=== PATIENT | male | born 1960 | race Caucasian/White ===

== ENCOUNTER → 2016-11-22 | Outpatient (CLI) | payer BC ==
[~2016-11-22] MED LIST: ASPI-427 PO; CALC625T32 PO; COLE625T PO; CYCL15CA18 PO; LISI1TAB11 PO; MULT-806 PO; OLAN5TAB25 PO; OMEG1CAP17 PO; ONDA4TAB4 PO; OXYC1TAB8 PO; PIRO20CA PO; PRAV40TA3 PO; PRAV40TA44 PO; VITA1CAP65 PO; VITA200C63 PO
--- NOTE | 2016-11-22 11:17 | DI ---
INDICATION: ITS.REASON: Z01.818 ENCOUNTER FOR OTHER PREPROCEDURAL EXAMINATION PROCEDURE: CHEST 2-VIEWS UPRIGHT (PA \T\ LAT) Encounter: Initial COMPARISON: January 15, 2013 FINDINGS: The lungs are clear without evidence of focal abnormal airspace opacity. There is no pleural effusion or pneumothorax. The heart size, mediastinal contours and pulmonary vascularity are within normal limits. Suture anchors in the left humeral head. IMPRESSION: No acute cardiopulmonary disease. .
== END ==
LOC: LAB 10:02
PROVIDERS: ATTEND Family Medicine
DX: Z01.818 Encounter for other preprocedural examination (principal)
CPT/HCPCS: 93005

== ENCOUNTER 2016-12-04 11:42 | Day surgery (SDC) | payer OTHER, BC ==
[2016-12-04] VITALS (20 sets, daily range): BP systolic 120–146; BP diastolic 74–91; PULSE 90–98; RESP 10–25; TEMP 96.6–97.9; O2SAT 90–99; Ht 179.1 cm; Wt 99.8 kg
[~2016-12-04] VITALS: Ht 179.1 cm; Wt 99.8 kg
[~2016-12-04 11:42] MED LIST changes: +CEFAZOLIN 1 GRAM INJECTION IV ONE; +LIDOCAINE 1% (10mg/ml) 2ml SDV INJ ONE; +LR 1,000 ML IV SCH; -ONDA4TAB4 PO; -OXYC1TAB8 PO; -PRAV40TA44 PO
--- OUTSIDE RECORDS SUMMARY | 2016-12-04 11:46 | XMS REPORT ---
Author Author Latosha Gabriel [facility], [facility] Address [address] [place] [address] Care Team Providers Care Internal Medicine Specialist Name Role Phone Latosha Gabriel Unavailable [phone] PROBLEMS Type Condition ICD9-CM Code PWS53-BT Code Onset Dates Condition Status SNOMED Code Problem Acute pain of right shoulder M25.511 Active [id number] ALLERGIES Unknown Allergies SOCIAL HISTORY No smoking Hx information available PLAN OF CARE VITAL SIGNS MEDICATIONS Unknown Medications RESULTS No Results PROCEDURES No Known procedures IMMUNIZATIONS No Known Immunizations
--- OUTSIDE RECORDS SUMMARY | 2016-12-04 11:46 | XMS REPORT | Continuity of Care Document ---
Author Author [facility] Organization [facility] Address Unknown Phone Unavailable Support Name Relationship Address Phone LETICIA SETHI Next Of Kin [address] [place] [address] Unavailable Insurance Providers Payer Name Policy Number Subscriber Name Relationship [facility] [id number] Sheri Pierce 18 Self Workers Compensation [id number] Sheri Pierce 18 Self Problems No Known Problems or Medical conditions. Family History History Response Recorded Date/Time HX Cerebrovascular Accident N 01/27/13 7:01am Hx Seizures N 01/27/13 7:01am Hx Angina Y 2012-CHECKED BY [facility]-HAS OCC 01/27/13 7:01am Hx Congestive Heart Failure N 01/27/13 7:01am Hx Heart Attack N 01/27/13 7:01am Hx Hypertension N 01/27/13 7:01am Hx Chronic Obstructive Pulmonary Disease (COPD) N 01/27/13 7:01am Hx Diabetes N 01/27/13 7:01am Hx Clotting Problems N 01/27/13 7:01am Hx Cancer N 01/27/13 7:01am Hx MRSA N 01/27/13 7:01am HX of Throat Surgery Y TONSILS CHILD 01/27/13 7:01am Social History History Response Recorded Date/Time Smoking Status Current some day smoker 01/27/13 7:01am Chewing Tobacco Status Y CHEWS POUCHES 01/27/13 7:01am Hx Substance Use N PAST METH ABUSER, CLEAN SINCE PER HISTORY AND PHYSICAL 01/27/13 7:01am Hx Alcohol Use Y IN PAST 01/27/13 7:01am Has the pt used tobacco in the last 12 months Y 01/27/13 7:01am Allergies, Adverse Reactions, Alerts Allergen Type Severity Reaction Last Updated tetracycline HCl Allergy Unknown 10/20/10 CAT GUT Adverse Reaction Unknown 09/28/09 Medications Medication Dose Units Route Sig Qty Days Vitamin B Complex (Super B Complex) 1 Cap PO DAILY Olanzapine (Zyprexa) 2.5 Mg PO BID [place]-3 Acid Ethyl Esters (Lovaza) 1 G PO BID Polyethylene Glycol 3350 (Miralax) 17 Gm PO PRN Pravastatin Sodium (Pravachol) 40 Mg PO DAILY Piroxicam (Feldene) 20 Mg PO DAILY Vitamin E 200 Unit PO DAILY [Amrix] 1 Tab PO DAILY Aspirin (Aspirin Enteric Coated) 325 Mg PO DAILY Multivitamins (Multivitamin) 1 Tab PO DAILY Vitamin E 400 Unit PO DAILY Piroxicam 20 Mg PO DAILY Vitamin B Complex (Super B Complex) 1 Cap PO DAILY Olanzapine (Zyprexa) 2.5 Mg PO DAILY [Simcor 500-20] PO DAILY Immunizations Name Given Type Hx Influenza Vaccination Y FALL 2011 H Hx Pneumococcal Vaccination N UNKNOWN H Response Recorded Date/Time Status not known Unknown Results Test Date Result Interp. Ref. Range Activated Partial Thromboplast Time March 17, 2012 10:45am 33.3 SEC N 24- 36 Alanine Aminotransferase (ALT/SGPT) January 27, 2013 7:35am 40 U/L N 21-72 Albumin January 27, 2013 7:35am 4.5 G/DL N 3.5-5.0 Albumin/Globulin Ratio January 27, 2013 7:35am 1.6 RATIO N 1.1-2.2 Alkaline Phosphatase January 27, 2013 7:35am 82 U/L N 38-126 Anion Gap January 27, 2013 7:35am 15 MEQ/L N 5-15 Aspartate Amino Transf (AST/SGOT) January 27, 2013 7:35am 33 U/L N 17-59 BUN/Creatinine Ratio January 27, 2013 7:35am 29 RATIO H 6-26 Basophils # (Auto) January 27, 2013 7:35am 0.1 T/MM3 N 0-0.2 Basophils (%) (Auto) January 27, 2013 7:35am 1.1 % N 0-2 Blood Urea Nitrogen January 27, 2013 7:35am 23.0 MG/DL H 9-20 Calcium Level January 27, 2013 7:35am 9.7 MG/DL N 8.4-10.2 Calculated Osmolality January 27, 2013 7:35am 281 MOSM/KG H 261-280 Carbon Dioxide Level January 27, 2013 7:35am 26 MEQ/L N 22-30 Chloride Level January 27, 2013 7:35am 103 MEQ/L N 98-107 Conjugated Bilirubin March 17, 2012 10:45am 0.00 MG/DL N 0.00-0.30 Creatinine January 27, 2013 7:35am 0.8 MG/DL N 0.8-1.5 Eosinophils # (Auto) January 27, 2013 7:35am 0.4 T/MM3 N 0-0.5 Eosinophils (%) (Auto) January 27, 2013 7:35am 6.8 % H 0-4 Globulin January 27, 2013 7:35am 2.8 G/DL N 2.4-3.6 Glucose Level January 27, 2013 7:35am 99 MG/DL N 75-110 Hematocrit January 27, 2013 7:35am 42.5 % N 41-53 Hemoglobin January 27, 2013 7:35am 14.4 GM/DL N 13.5-17.5 Lymphocytes # (Auto) January 27, 2013 7:35am 2.0 T/MM3 N 1-4.8 Lymphocytes (%) (Auto) January 27, 2013 7:35am 32.2 % N 23-45 Mean Corpuscular Hemoglobin January 27, 2013 7:35am 29.9 UUG N 26-34 Mean Corpuscular Hemoglobin Concent January 27, 2013 7:35am 33.9 GM/DL N 31- 37 Mean Corpuscular Volume January 27, 2013 7:35am 88.2 UM3 N 80-100 Mean Platelet Volume January 27, 2013 7:35am 9.2 UM3 L 9.4-12.4 Monocytes # (Auto) January 27, 2013 7:35am 0.8 T/MM3 N 0-0.8 Monocytes (%) (Auto) January 27, 2013 7:35am 12.4 % H 0-9.0 Neutrophils # (Auto) January 27, 2013 7:35am 3.0 T/MM3 N 1.8-7.7 Neutrophils (%) (Auto) January 27, 2013 7:35am 46.9 % N 33-66 Platelet Count January 27, 2013 7:35am 304 T/MM3 N 130-400 Potassium Level January 27, 2013 7:35am 4.5 MEQ/L N 3.6-5 Prothromb Time International Ratio January 27, 2013 7:35am 1.10 N 0.79-1.23 RDW Standard Deviation January 27, 2013 7:35am 40.9 FL N 36.9-50.2 Red Blood Count January 27, 2013 7:35am 4.82 M/MM3 N 4.50-5.90 Sodium Level January 27, 2013 7:35am 144 MEQ/L N 134-144 Total Bilirubin January 27, 2013 7:35am 0.50 MG/DL N 0.20-1.30 Total Protein January 27, 2013 7:35am 7.3 G/DL N 6.3-8.2 Troponin I March 17, 2012 10:45am < 0.012 ng/ml 0-0.12 Unconjugated Bilirubin March 17, 2012 10:45am < -0.30 MG/DL L 0.00-1.10 White Blood Count January 27, 2013 7:35am 6.3 T/MM3 N 4.5-11.0 Glomerular Filtration Rate Calc January 27, 2013 7:35am 102 - Immature Granulocyte # (Auto) January 27, 2013 7:35am 0.04 T/MM3 H 0.00-0.03 Immature Granulocyte % (Auto) January 27, 2013 7:35am 0.6 % H 0.0-0.5 ZB-Ydb-W-Type Natriuretic Peptide March 17, 2012 10:45am 14 PG/ML N 0-175 Procedures Procedure Code Date ARTHROSCOP ROTATOR CUFF REPR [id number] 01/27/13 SHOULDER ARTHROSCOPY/SURGERY 70390 01/27/13 SHOULDER ARTHROSCOPY/SURGERY 11810 01/27/13 Encounters Encounter Location Date/Time Departed Emergency Room [facility] 03/17/12 10:58am
--- OUTSIDE RECORDS SUMMARY | 2016-12-04 11:46 | XMS REPORT | Continuity of Care Document ---
Author Author [facility] Address Unknown Phone Unavailable Allergies Medications Medication Packaging Start Date Stop Date Route Dosage Sig OLANZapine 5 MG Oral Tablet UD 09/06/2014 10/02/2015 ORAL 5MG 1 po QAM OLANZapine 5 MG Oral Tablet UD 09/01/2015 09/26/2016 ORAL 5MG 1 po QAM OLANZapine 5 MG Oral Tablet UD 05/29/2016 06/24/2017 ORAL 5MG 1 po QAM Problems Date Dx Coded Attending Type Code Diagnosis Diagnosed By 09/01/2015 F E78.2 Mixed hyperlipidemia Sean, Susana Ana 09/01/2015 F F20.0 Paranoid schizophrenia Barbra Rivas 09/01/2015 F 477.9 ALLERGIC RHINITIS, CAUSE UNSPECIFIED Barbra Rivas 09/01/2015 F V71.09 NO DIAGNOSIS Barbra Rivas 09/01/2015 F E78.2 Mixed hyperlipidemia Sean, Susana Ana 09/01/2015 F F20.9 Schizophrenia, unspecified Estrada, Susana Ana 09/01/2015 F J30.9 Allergic rhinitis, unspecified Estrada, Susana Ana 09/01/2015 F M05.80 Other rheumatoid arthritis with rheumatoid factor of unspecified site Estrada, Susana Ana 09/01/2015 F F20.9 Schizophrenia, unspecified Estrada, Susana Ana 05/29/2016 F F20.9 Schizophrenia, unspecified Nogueira, Paola 05/29/2016 F E78.2 Mixed hyperlipidemia Nogueira, Paola 05/29/2016 F E78.2 Mixed hyperlipidemia Estrada, Susana Ana 07/01/2016 F F20.9 Schizophrenia, unspecified Estrada, Susana Ana 11/22/2016 F E78.2 Mixed hyperlipidemia Estrada, Susana Ana 11/22/2016 F F20.9 Schizophrenia, unspecified Estrada, Susana Ana 11/22/2016 F I10 Essential (primary) hypertension Estrada, Susana Ana 11/22/2016 F J30.9 Allergic rhinitis, unspecified Chidi Estradaia Ana 11/22/2016 F M05.80 Other rheumatoid arthritis with rheumatoid factor of unspecified site Susana Estrada Ana 11/22/2016 F E78.2 Mixed hyperlipidemia Rylie Donovan 11/22/2016 F F20.9 Schizophrenia, unspecified Rylie Donovan A 11/22/2016 F E78.2 Mixed hyperlipidemia Chidi Estradaia Ana 11/22/2016 F F20.9 Schizophrenia, unspecified Sean, Susana Ana Procedures Code Description [place] [address] OFFICE/OUTPATIENT VISIT, Chidi Candelariaia Ana 09/01/2015 [id number] OFFICE/OUTPATIENT VISIT, MAN Estrada Susana Ana 09/01/2015 00120 OFFICE/OUTPATIENT VISIT, Wendy Candelariaricia Ana 05/29/2016 [id number] OFFICE/OUTPATIENT VISIT, Chidi Candelariaia Ana 05/29/2016 41121 OFFICE/OUTPATIENT VISIT, Chidi Candelariaia Ana 11/22/2016 [id number] OFFICE/OUTPATIENT VISIT, Wendy Candelariaricia Ana 11/22/2016 Results Encounters ACCT No. Visit Date/Time Discharge Status Pt. Type Provider Facility Loc./Unit Complaint [id number] 05/29/2016 15:18:00 05/29/2016 15:48:00 DIS Outpatient
[2016-12-04] MEDS ORDERED: ROCURONIUM 50mg/5ml INJECTION IV ONE ×2 (11:54→17:00)
[2016-12-04] MEDS ORDERED: ROPIVACAINE 0.5% (5mg/ml) 30ml INJ ONE (11:54)
[2016-12-04] MEDS ORDERED: PROPOFOL 200mg 0 ML IV ONE (11:54)
--- NOTE | 2016-12-04 12:41 | ANESPREOP ---
Anesthesia Record Date and Time DATE: 12/04/16 TIME: 12:39 Pre-Op Diagnosis right Rotator Cuff tear Proposed Surgical Procedure RIGHT SHOULDER ARTHROSCOPY, RCR SUPERIOR LABRAL TEAR NPO since: 2199 Allergies: Coded Allergies: tetracycline HCl (Verified Allergy, Unknown, 12/03/16) Uncoded Allergies: CAT GUT (Adverse Reaction, Unknown, 09/28/09) Ht/Wt/BMI Height: 5 ' 10.50 " Weight: 99.800 kg BMI: 31.1 kg/m2 Vital Signs Date Time Temp Pulse Resp B/P Pulse Ox O2 Delivery O2 Flow Rate FiO2 12/04/16 12:21 97.9 93 16 127/91 94 Room Air Medications Inpatient Medications Current Medications Medications (Trade) Dose Ordered Sig/Jeni Start Time Stop Time Status Last Admin Dose Admin Lactated Ringer's (Lactated Ringers) 1,000 ml @ 50 mls/hr Q20H 12/04/16 07:00 12/04/16 12:30 50 MLS/HR Aspirin EC (Aspirin Enteric Coated) 325 Mg Tablet.dr, 325 MG PO DAILY, (Reported ) Last Taken: on 11/25/16 Calcium Polycarbophil (Fiber Tabs) 625 Mg Tablet, 1 TAB PO DAILY, (Reported) Last Taken: on 12/03/16 Cyclobenzaprine HCl (Amrix) 15 Mg Cap.er.24h, 1 CAP PO DAILY, (Reported) Last Taken: on 12/03/16 0300 Lisinopril/Hydrochlorothiazide (Lisinopril-Hctz 20-12.5 mg Tab) 1 Each Tablet, 1 TAB PO DAILY, (Reported) Last Taken: on 12/03/16 0300 Multivitamins (Multivitamin) 1 Tab Tablet, 1 TAB PO DAILY, (Reported) Last Taken: on 11/27/16 Olanzapine (Olanzapine) 5 Mg Tablet, 1 TAB PO DAILY, (Reported) Last Taken: on 11/27/16 0300 Piroxicam (Feldene) 20 Mg Capsule, 20 MG PO DAILY, (Reported) Last Taken: on 11/27/16 Vitamin B Complex (Super B Complex) 1 Cap Capsule, 1 CAP PO DAILY, (Reported) Last Taken: on 11/27/16 Vitamin E (Vitamin E) 200 Unit Capsule, 200 UNIT PO DAILY, (Reported) Last Taken: on 11/27/16 Currently on Beta Kyle: No Medical/Surgical History Anesthesia PMH: Reports: *Angina (HX ANGINA IN 2012, WAS "CHECKED AND CLEARED" , NONE SINCE 2011), *Hypertension, Arthritis (AO), Asthma (CHILDHOOD, NO ISSUES AN ADULT), Hepatitis (HX: HEP A&B, PER CURRENT LAB TEST-NO HISTORY), Hyperlipidemia, Reflux (HX), Sleep Apnea, Denies: *Diabetes, *Dyspnea, *MO, Anesthesia Reactions (NO AIRWAY ISSUES KNOWN), Blood Transfusion Reac, CHF, COPD , CVA/Stroke/TIA, Cancer, Clotting Problems, Deep Vein Thrombosis, Glaucoma, Hiatal Hernia, Malignant Hyperthermia, Pneumonia, Renal Disease, Seizures, Thyroid Disease, Tuberculosis Smoking Status: Former smoker Use Chewing Tobacco?: No Second Hand Exposure: No Substance Use Type: former substance user, 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) Alcohol Intake: none Past Surgical History Orthopedic Surgeries: Yes - L RCR Abdominal Surgeries: Genitourinary Surgeries: Cardiac Surgeries: Endocrine Surgeries: Reproductive Surgeries: Neurological Surgeries: Ear Surgeries: Nose Surgeries: Throat Surgeries: Yes - TONSILS Other Surgeries: Yes - ORAL SURGERIES Anesthesia Adverse Reactions: FOUND none Family Hx of Anesthesia Advers: none Hx of Motion Sickness: No Pertinent Findings EKG Rhythm: Sinus Rhythm Physical Exam Respiratory: Lungs clear Cardiovascular: FOUND Regular rate, rhythm, FOUND No murmur Airway Assessment Mallampati Score: III TMD: 3 Fingerbreadths Neck Extension: Good Teeth: Chipped Teeth/Crowns Overall Assessment: May Be Diff Intubation ASA: 3 Plan Anesthesia Plan: GETA Peripheral Nerve Block: Interscalene Block - RT Discussion Discussed risks/options/alternatives of anesthesia and questions answered. Patient consents. Nursing pain assessment noted. Attestation Statement Prior to the delivery of any anesthetic medication, I examined the patient, developed the plan, obtained the patient's consent and discussed the risk and benefits of the procedure with the patient/guardian. NANCI ROMERO CRNA December 04, 2016 12:41
--- NOTE | 2016-12-04 12:42 | NUR ---
2 MG VERSED ADMINISTERED BY NANCI ROMERO CHUTE BOSS AT 1242
[2016-12-04] MEDS ORDERED: MIDAZOLAM 2mg/2ml INJECTION IV ONE (12:45)
--- NOTE | 2016-12-04 13:04 | ANESPD ---
Peripheral Nerve Blockade Physician: Andrea Ley MD Date: 12/04/16 Surgical Procedure: right rotator cuff repair Discussion Discussed risks/options/alternatives of anesthesia and questions answered. Patient consents. Nursing pain assessment noted. Block Start: 12:48 Block Stop: 12:58 Block Employed: Intrascalene Indication: post-operative pain Approach: right side confirmed Position: supine Patient: Consent, risks/benefits discussed, Informed, post block act. discussed Monitors: EKG, SpO2, NIBP IV Sedation: Yes Sedation: sedate w/meaningful contact Midazolam (mg): 2 Initial Vital Signs First Documented Vital Signs Date Time Temp Pulse Resp B/P Pulse Ox O2 Delivery O2 Flow Rate FiO2 12/04/16 12:21 97.9 93 16 127/91 94 Room Air Post Vital Signs Vital Signs Date Time Temp Pulse Resp B/P Pulse Ox O2 Delivery O2 Flow Rate FiO2 12/04/16 12:21 97.9 93 16 127/91 94 Room Air Initial Pain Score: 0 Post Block Score: 0 Prep: chlorhexadine/ETOH Ultrasound Used?: Yes Injectate Ropivacaine (%): 0.5 Ropivacaine (mL): 30 Injection Injection made incrementally with constant monitoring and aspiration every [5] ml. NANCI ROMERO CRNA December 04, 2016 13:04
[2016-12-04] MEDS ORDERED: ONDANSETRON 4mg/2ml INJECTION ONE (14:30)
[2016-12-04] MEDS ORDERED: ONDANSETRON 4mg/2ml INJECTION IV PRN (15:00)
[2016-12-04] MEDS ORDERED: MEPERIDINE 100 mg/ml VIAL IV PRN (15:00)
[2016-12-04] MEDS ORDERED: HYDROMORPHONE 2mg/ml INJECTION IV PRN (15:00)
[2016-12-04] MEDS ORDERED: ONDA4TAB4 PO (15:32)
[2016-12-04] MEDS ORDERED: OXYC1TAB8 PO (15:32)
--- NOTE | 2016-12-04 15:34 | PDPROCED ---
Immediate Operative Note DATE: 12/04/16 TIME: 15:33 Preop Diagnosis: RIGHT RCT,LONGHEAD BICEPS TEAR,LABRAL TEAR, IMPINGEMENT Postop Diagnosis: Right shoulder RCT, chronic long head biceps tear, degenerative labral tear, impingement Surgical Procedures: R Arthroscopic RCR (SAD, labral debridement) Surgeon: Jil Federal Law Clerk: DAMIAN Tyler Anesthesia: General (plus regional block) Complications: none Estimated Blood Loss see anesthesia FORTINO EVERETT December 04, 2016 15:34
--- NOTE | 2016-12-04 16:43 | ANESPO ---
Post-Op Note Date 12/04/16 Time: 16:42 Status Pt Participated in Evaluation: Pt participated by phone Vital Signs Date Time Temp Pulse Resp B/P Pulse Ox O2 Delivery O2 Flow Rate FiO2 12/04/16 16:27 91 18 137/74 94 Room Air 12/04/16 16:12 96.7 12/04/16 15:55 2.00 Respiratory Function: Airway patent Cardiovascular Function: Regular pulse Mental Status: Alert/oriented Pain Level Intensity: 0 (block working well) Hydration: Taking po fluids Complications during Recovery None apparent Follow-Up Instructions Instructions Per Surgeon GEORGE RODRIGUEZ CRNA December 04, 2016 16:43
[2016-12-04] MEDS ORDERED: SUGAMMADEX 200 MG/2 ML INJECTION IV ONE (17:00)
[2016-12-04] MEDS ORDERED: NEOSTIGMINE 10mg/10ml INJECTION IV ONE (17:00)
[2016-12-04] MEDS ORDERED: ONDANSETRON 4mg/2ml INJECTION IV ONE (17:00)
[2016-12-04] MEDS ORDERED: KETOROLAC 30mg/ml INJECTION IV ONE (17:00)
--- NOTE | 2016-12-05 09:23 | OPNOTEF ---
DATE OF OPERATION 12/04/2016 PREOPERATIVE DIAGNOSIS 1. Right shoulder rotator cuff tear. 2. Right shoulder long head biceps rupture. 3. Right shoulder rotator cuff impingement. POSTOPERATIVE DIAGNOSIS 1. Right shoulder full-thickness supraspinatus rotator cuff tear. 2. Right shoulder partial-thickness articular sided tear, subscapularis 3. Right shoulder long head biceps tendon rupture with degenerative superior labrum tearing. 4. Right shoulder subacromial impingement with bursitis. PROCEDURE 1. Right shoulder arthroscopic rotator cuff repair. 2. Right shoulder arthroscopic limited debridement superior labrum and subscapularis. 3. Right shoulder arthroscopic subacromial decompression. SURGEON Andrea Ley MD FOAM MACHINE OPERATOR Mayo Walton PA-C ANESTHESIA General with regional block FLUIDS Please refer to Anesthesia chart. EBL Minimal. TOURNIQUET None used. COMPLICATIONS None. CONDITION Stable to recovery room. DESCRIPTION OF PROCEDURE The patient was identified in the preoperative holding area. The operative extremity was identified and appropriately marked. Risks, benefits, alternatives and potential complications were discussed and informed consent was obtained. The patient was taken to the operating theatre, placed supine on the operating table. Appropriate cardiorespiratory monitors were applied. General anesthesia was administered. The patient was positioned in a seated beach chair position with all bony prominences well padded. The head and neck were secured in a safe position. Right upper extremity was sterilely prepped and draped in the usual fashion. Surgical time-out was performed, confirmed with myself, the drum sander setter and circulating nurse. Preoperative antibiotics were given. Examination under anesthesia revealed full passive range of motion of the right shoulder. No evidence of instability. A standard posterior arthroscopic portal was established. The arthroscope was inserted and the glenohumeral joint was insufflated with saline. Needle localization was utilized to establish an anterior portal in the rotator interval. Diagnostic examination ensued. Glenohumeral articular cartilage was fairly well maintained. Subscapularis showed some fraying of the superior border with some longitudinal tearing at the midportion of the tendon. Fraying laterally on the articular side was debrided with a suction shaver. The bulk of the tendon however was intact. No glenohumeral ligament. Anterior, inferior and posterior stephen were found to be intact. There was degenerative fraying of the superior labrum which was debrided with a shaver. This appeared to be a degenerative type 2 lesion. However the long head biceps tendon was absent and was visibly ruptured. The labrum was further debrided with a suction shaver as was the biceps stump. Inspection of the posterior margin of the rotator cuff was intact. The supraspinatus showed full-thickness rotator cuff tear. The arthroscope was withdrawn and placed into the subacromial space. A lateral portal was established. A thorough bursectomy was performed to include the anterior, lateral and posterior gutters. The CA ligament was markedly frayed. This was released revealing a moderate size anterolateral subacromial spur. A 5-5 bur was inserted and acromioplasty was performed over to the level of the AC joint, converting this to a type 1 flat acromion. The capsule of the AC joint was released as well revealing underlying AC joint spurs. These were debrided with the bur as well though a formal AC joint resection was not performed. Inspection of the bursal aspect of the rotator cuff showed a crescentic supraspinatus tear. It was approximately 2 cm from anterior to posterior. The tendon was freely mobile. The edge of the tendon was debrided with a suction shaver. The footprint was debrided to a bleeding cortical surface. Anterior and lateral cannulas were placed. An accessory portal was utilized to place two 5.0 mm TwinFix anchors on the medial aspect of the footprint. Sutures were passed in a horizontal mattress configuration beginning anteriorly and culminating posteriorly. Sutures were then tied arthroscopically, fixing this the medial aspect of this rotator cuff tendon tear in this transosseous equivalent type repair. A single suture limb from each knot were then pulled out the lateral cannula. Soft tissue was cleared from the lateral margin of the greater tuberosity for insertion of two MULTIFIX S anchors. The first anchor was placed at the anterior margin of the tear on the lateral aspect of the greater tuberosity. The sutures were tensioned appropriately, providing compression of the lateral margin of the tendon as the suture anchors were inserted and deployed. This was then repeated for a second suture anchor along the posterior margin of the lateral aspect of the greater tuberosity. Suture tails were then cut. Probing of the repair noted a stable and solid repair. Visualizing arthroscopically while taking the shoulder through range of motion showed no gapping or tearing. Overall tendon tissue quality was felt to be good. The shoulder was then copiously lavaged, irrigated and drained. All arthroscopic instruments were removed. Portals were closed with nylon sutures. Sterile dressings were applied followed by a Polar Pack with all skin edges covered with surgical towels. An abduction sling was applied. The patient was awakened from anesthesia and taken to the recovery room in stable and satisfactory condition. JUAN
== END 2016-12-04 16:42 | disposition home or self-care (01) ==
LOC: NSC 11:42
PROVIDERS: ATTEND Orthopaedic Surgery
DX: M75.121 Complete rotator cuff tear or rupture of right shoulder, not specified as traumatic (principal); M75.41 Impingement syndrome of right shoulder; S46.111A Strain of muscle, fascia and tendon of long head of biceps, right arm, initial encounter; I10 Essential (primary) hypertension; E78.00 Pure hypercholesterolemia, unspecified; K21.9 Gastro-esophageal reflux disease without esophagitis; F31.9 Bipolar disorder, unspecified; Z79.899 Other long term (current) drug therapy; Z79.82 Long term (current) use of aspirin; Z88.1 Allergy status to other antibiotic agents; Z87.891 Personal history of nicotine dependence; Z86.19 Personal history of other infectious and parasitic diseases; X58.XXXA Exposure to other specified factors, initial encounter
CPT/HCPCS: 29826; 29827; C1713; J0690; J2405; J2795; J7120

== ENCOUNTER 2016-12-10 23:57 | Emergency (ER) | payer OTHER, BC ==
[~2016-12-10] VITALS: Ht 177.8 cm; Wt 82.8 kg
[2016-12-10 23:57] VITALS: Ht 177.8 cm; Wt 82.8 kg
[~2016-12-10 23:57] MED LIST changes: -CEFAZOLIN 1 GRAM INJECTION IV ONE; -COLE625T PO; -LIDOCAINE 1% (10mg/ml) 2ml SDV INJ ONE; -LR 1,000 ML IV SCH; -OMEG1CAP17 PO; +ONDA4TAB4 PO; +OXYC1TAB8 PO; -PRAV40TA3 PO
--- OUTSIDE RECORDS SUMMARY | 2016-12-11 00:02 | XMS REPORT | Continuity of Care Document ---
Author Author [facility] Organization [facility] Address Unknown Phone Unavailable Support Name Relationship Address Phone DARI SCHMITT II, MD Caregiver [address] [place] [address] Unavailable KELBY ESTRADA MD Caregiver [address] [place] [address] Unavailable LETICIA SETHI Next Of Kin [address] [place], [place] [id number] Insurance Providers Guarantor Ian Del Angel Address [address] [place] [address] Email DENIED 16 Payer [facility] Policy Number [id number] Subscriber's Name Del Angel,Ian L Relationship 18 Self Group Number [id number] Effective Date 08 Payer Workers Compensation Policy Number [id number] Subscriber's Name Del AngelIan weaver Jim Relationship 18 Self Advance Directives Directive Response Recorded Date/Time Ordered Resuscitation Status Full Code 12/03/16 2:08pm Resuscitation Documents on File No 12/04/16 12:13pm DPOA for Healthcare Only No 12/04/16 12:13pm Living Will No 12/04/16 12:13pm Problems No problem information available. Medications Current Home Medications Medication Dose Units Route Directions Days Qty Instructions Start Date Aspirin (Aspirin Enteric Coated) 325 Mg Tablet. 325 Mg Oral Daily 09/28/09 Calcium Polycarbophil (Fiber Tabs) 625 Mg Tablet 1 Tab Oral Daily 03/07/16 Cyclobenzaprine Hcl (Amrix) 15 Mg Cap.er.24h 1 Cap Oral Daily 06/12 Lisinopril/Hydrochlorothiazide (Lisinopril-Hctz 20-12.5 Mg Tab) 1 Each Tablet 1 Tab Oral Daily 30 12/03/16 Multivitamins (Multivitamin) 1 Tab Tablet 1 Tab Oral Daily Olanzapine 5 Mg Tablet 1 Tab Oral Daily 03/07/16 Ondansetron Hcl (Zofran) 4 Mg Tablet 4 Mg Oral Every 6 Hours as needed for Nausea 10 Tablet 12/04/16 Oxycodone Hcl/Acetaminophen (Percocet 5-325 Mg Tablet) 5-325 Tablet 5-10 Mg Oral Every 4 Hours 60 Tablet 12/04/16 Piroxicam (Feldene) 20 Mg Capsule 20 Mg Oral Daily 01/26/13 Vitamin B Complex (Super B Complex) 1 Cap Capsule 1 Cap Oral Daily 01/27/13 Vitamin E 200 Unit Capsule 200 Unit Oral Daily 01/26/13 Past Home Medications Medication Directions Ordered Status Amix , 15 Mg Oral Daily 09/28/09 Discontinued Olanzapine (Zyprexa) 2.5 Mg Tablet, 2.5 Mg Oral Daily 09/28/09 Discontinued Piroxicam 20 Mg Capsule, 20 Mg Oral Daily 09/28/09 Discontinued Polyethylene Glycol 3350 (Miralax) 17 Gm Powd.pack, 17 Gm Oral As Needed 09/09 Discontinued Simcor 500-20 , Oral Daily 09/28/09 Discontinued Vitamin B Complex (Super B Complex) 1 Cap Capsule, 1 Cap Oral Daily 09/28/09 Discontinued Vitamin E 400 Unit Capsule, 400 Unit Oral Daily 09/28/09 Discontinued Social History Social History Problem Response Recorded Date/Time Onset Date Status Reason for Hospitalization LT SHOULDER SCOPE 12/04/2016 4:20pm Not Applicable Not Applicable Chewing Tobacco Status Y CHEWS POUCHES 01/27/2013 7:01am Not Applicable Not Applicable Hx Substance Use N PAST METH ABUSER, CLEAN SINCE 12/03/2016 1:42pm Not Applicable Not Applicable Hx Alcohol Use Y OCCASIONALLY 12/03/2016 1:42pm Not Applicable Not Applicable Has the pt used tobacco in the last 12 months Yes 12/03/2016 1:42pm Not Applicable Not Applicable Query Response Start Date Stop Date Smoking Status Former smoker Hospital Discharge Instructions Instructions: Care Instructions: I was in the hospital because (patient own words): LT SHOULDER SCOPE Discharge Diet: Resume normal diet as tolerated. Discharge Activity: Please refer to Dr. Estrada's postoperative instructions. Follow Up Appointments: Please refer to Dr. Estrada's postoperative instructions. Pending Lab / Results: No Pending Lab Expected Signs/Symptoms: Please refer to Dr. Estrada's postoperative instructions. Notify Physician If: Please refer to Dr. Estrada's postoperative instructions. During Business Hours:: Please call our office at [phone]. After Business Hours:: Please call the hospital at [phone] and have the physician or the covering physician paged. Pain Management/Treatment: Please refer to Dr. Estrada's postoperative instructions. Wound/Incision Care: Please refer to Dr. Estrada's postoperative instructions. Condition at time of discharge: Good Plan of Care Discharge Date 12/04/16 4:42pm Instructions/Education Provided [facility] [place] Rotator Cuff Prescriptions See Medication Section Functional Status Query Response Date Recorded Ability to complete ADL's impeded by Impaired Mobility December 04, 2016 12:13pm Allergies, Adverse Reactions, Alerts Allergen Type Severity Reaction Status Last Updated tetracycline HCl Allergy Unknown Active 12/03/16 CAT GUT Adverse Reaction Unknown Active 09/28/09 Immunizations Query Response on File Recorded Date/Time Hx Influenza Vaccination Y fall 210412/03/16 1:42pm Hx Pneumococcal Vaccination No 12/03/16 1:42pm Hx Influenza Vaccination Y fall 210412/03/16 1:42pm Vital Signs Acute Vital Signs Vital Response Date/Time Temperature (Fahrenheit) 97.4 deg F (96.8 - 99.1) 12/04/2016 4:42pm Temperature (Calculated Celsius) 36.59170 degrees C (36.0 - 37.3) 12/04/2016 4:42pm Temperature Source Temporal 12/04/2016 4:42pm Pulse Rate (adult) 94 bpm (60 - 100) 12/04/2016 4:42pm Respiratory Rate 16 breaths/min (10 - 20) 12/04/2016 4:42pm O2 Sat by Pulse Oximetry 94 % (90 - 100) 12/04/2016 4:42pm Oxygen Delivery Method Room Air 12/04/2016 1:15pm Oxygen Delivery Method Room Air 12/04/2016 4:42pm Oxygen Flow Rate 2.00 L/min 12/04/2016 3:55pm Blood Pressure 146/74 mm Hg 12/04/2016 4:42pm Blood Pressure Source Automatic Cuff 12/04/2016 4:42pm Height (Feet) 5 feet 12/04/2016 12:15pm Height (Inches) 10.50 inches 12/04/2016 12:15pm Weight (Kilograms) 99.800 kg 12/04/2016 12:15pm Body Mass Index (BMI) 31.1 12/04/2016 12:15pm Results No known relevant diagnostic tests, laboratory data and/or discharge summary. Procedures Procedure Status Date Provider(s) Chest x-ray 2vw frontal&latl Completed 11/22/16 Electrocardiogram tracing Completed 11/22/16 Shoulder arthroscopy Completed 12/04/16 KELBY ESTRADA MD Encounters Encounter Location Arrival/Admit Date Discharge/Depart Date Attending Provider Departed [facility] 12/04/16 11:42am 12/04/16 4 :42pm KELBY ESTRADA MD Registered Clinic [facility] 11/22/16 10:02am DARI SCHMITT II, MD
--- OUTSIDE RECORDS SUMMARY | 2016-12-11 00:02 | XMS REPORT | Continuity of Care Document ---
Author Author [facility] Address Unknown Phone Unavailable Allergies Medications Medication [...] Procedures Code Description [place] [address] OFFICE/OUTPATIENT VISIT, Chidi Candelariaia Ana 09/01/2015 [id number] OFFICE/OUTPATIENT VISIT, MAN Estrada Susana Ana 09/01/2015 00622 OFFICE/OUTPATIENT VISIT, Wendy Candelariaricia Ana 05/29/2016 [id number] OFFICE/OUTPATIENT VISIT, MAN Estrada Susana Ana 05/29/2016 [id number] OFFICE/OUTPATIENT VISIT, MAN Estrada Susana Ana 11/22/2016 [id number] OFFICE/OUTPATIENT VISIT, Wendy Candelariaricia Ana 11/22/2016 Results Encounters ACCT No. Visit Date/Time Discharge Status Pt. Type Provider Facility Loc./Unit Complaint [id number] 11/22/2016 15:43:00 11/22/2016 16:13:00 DIS Outpatient
--- OUTSIDE RECORDS SUMMARY | 2016-12-11 00:02 | XMS REPORT | Continuity of Care Document ---
Author Author [facility] Organization [facility] Address Unknown Phone Unavailable Support Name Relationship Address Phone LETICIA SETHI Next Of Kin [address] [place] [address] Unavailable Insurance Providers Payer Name Policy Number Subscriber Name Relationship [facility] [id number] Sheri Pierce 18 Self Workers Compensation [id number] Sheri Pierce 18 Self Problems No Known Problems or Medical conditions. Family History History Response Recorded Date/Time HX Cerebrovascular Accident N 01/27/13 7:01am Hx Seizures N 01/27/13 7:01am Hx Angina Y 2012-CHECKED BY [facility] [place]-HAS OCC 01/27/13 7:01am Hx Congestive [...] DAILY Olanzapine (Zyprexa) 2.5 Mg PO BID [place]-3 Acid Ethyl Esters (Lovaza) 1 G PO [...] 27, 2013 7:35am 0.6 % H 0.0-0.5 IS-Noz-I-Type Natriuretic Peptide March 17, 2012 10:45am 14 PG/ML N 0-175 Procedures Procedure Code Date ARTHROSCOP ROTATOR CUFF REPR [id number] 01/27/13 SHOULDER ARTHROSCOPY/SURGERY 67337 01/27/13 SHOULDER ARTHROSCOPY/SURGERY 25800 01/27/13 Encounters Encounter Location Date/Time Departed Emergency Room [facility] 03/17/12 10:58am
--- NOTE | 2016-12-11 00:14 | NUR ---
PROVIDER DR VERDUGO IN ROOM TO SEE PT
--- NOTE | 2016-12-11 00:20 | ERPDOC ---
Departure Disposition Decision Date: December 11, 2016 Disposition Decision Time: 00:25 Disposition: 01 DISCHARGED HOME, SELF-CARE Impression Impression Impression: Primary Impression: Tinea Additional Impression: Cellulitis Site of cellulitis of extremity: axilla Laterality: right Severity: Moderate Condition: Improved Seen By: Physician only Referrals: DARI SCHMITT II, MD (Family) Patient Instructions: Skin Yeast Infection (ED) Problems/Meds/Labs Reviewed?: Yes Medications reviewed and manag: Yes Additional Instructions: Apply Lamisil cream twice daily to affected area Keep area as dry as possible Keflex 500 mg one tablet 3 times daily for 10 days Follow up care ordered?: Yes Mental Status: Alert Scripts Cephalexin (Keflex) 500 Mg Capsule 500 MG PO TID, #30 CAP Prov: FRANCISCA VERDUGO MD 12/11/16 HPI - Skin General General Chief Complaint: Skin Rash/Abscess Stated Complaint: POST SURGERY RASH ON R ARM Time Seen by Provider: 00:00 Source: patient Exam Limitations: no limitations HPI - Skin General Initial Comments Patient has developed a rash under the right arm, involving the total of the axilla and radiating down the medial portion of the right upper arm. Patient is in a sling and swath status post right rotator cuff surgery 7 days ago. Occurred At: home Onset: Gradual Duration: 1 week Severity: moderate Possible Cause: no cause identified Associated Symptoms: rash, DENIES: blisters, change in skin texture, edema, fever, flushing, headache, hives, jaundice, malaise, nasal congestion, numbness , pallor, paresthesia, petechiae, sore throat, swelling/mass/lumps, tingling Allergies: Coded Allergies: tetracycline HCl (Verified Allergy, Unknown, 12/03/16) Uncoded Allergies: CAT GUT (Adverse Reaction, Unknown, 09/28/09) Past History Past Medical History Metabolic: hypercholesterolemia GI: constipation Musculoskeletal: back pain, osteoarthritis Psychological: psychosis Surgical History Surgical History Comments Bilateral rotator cuff surgery Vaccines Hx Influenza Vaccination: Yes (FALL 2104) Hx Pneumococcal Vaccination: No Social History Does patient use chewing tobac: No Second Hand Exposure: No Substance Use Type: former substance user, methamphetamine Alcohol Intake: none Review of Systems Constitutional Constitutional: DENIES: appetite decrease, appetite increase, chills, dizziness , fever, weakness ENMT Ears: DENIES: pain Hearing: DENIES: hearing loss, tinnitus Balance: DENIES: vertigo Mouth/Throat: DENIES: change in swallowing, change in voice, hoarsness, painful swallowing, sore throat Cardiovascular Cardiac: DENIES: chest pain, dyspnea on exertion Rhythm/Rate: DENIES: irregular beat, palpitations, tachycardia Vascular: DENIES: pedal edema Pulmonary Respiratory: DENIES: cough, dyspnea, pleuritic chest pain GI Upper Abdomen: DENIES: dysphagia, heartburn/indigestion, nausea, pain, vomiting Lower Abdomen: DENIES: blood in stool, constipation, diarrhea, pain General: DENIES: burning, dysuria, frequency, pain, urgency Musculoskeletal General: DENIES: cramps, joint pain, joint swelling, pain, weakness Integumentary Skin: rash Neurological General: DENIES: headache, numbness, tingling, vertigo, weakness Psychiatric Psychiatric: DENIES: anxiety, depression, nervousness Physical Exam General General Nourishment: well nourished, well developed, appears stated age, no acute distress General Body Habitus: well groomed Vitals and Pain Weight: Kilograms: Height (feet): 5 Height (inches): 10.50 Triage Pain Scale: RN VS reviewed by Provider: Yes Normal Exams: Head: Normocephalic w/o trauma Eyes: Pupils are PERRLA w/ EOMI, No scleral icterus, irritation, or foreign bodies noted ENMT: No facial trauma, nasal exudates, pharyngeal erythema, or exudates are noted Neck: Full range of motion, without adenopathy, JVD, bruits or thyromegaly Chest/Resp: Clear all [place], with good airflow, and symmetry bilaterally CV: Regular rate and rhythm, without murmur or gallop, Pulses 2+ all extremities, capillary refill, <2 seconds all ext., no pedal edema noted Abdomen: Bowel sounds positive, soft, non-tender, non-distended, no hepatosplenomegaly, masses or bruits noted Lymphatic: No lymphadenopathy, or lymphedema noted Musculoskeletal: No tenderness, or deformity noted, good range of motion, all extremities Neurologic: Patient is alert, and oriented, cranial nerves, motor/sensory/ cerebellar, exams w/o gross deficits, to observation Psychiatric: Patient exhibits, appropriate attention, emotion and affect Integumentary (brief) Integumentary Brief: FOUND: dry, pink, rash (dry rash over the right axilla extending down the medial right upper arm erythematous with a slightly raised base, minimal silverslough, consistent with yeast infection. Several areas. To be weeping with increased inflammation consistent with possible bacterial overgrowth), warm Progress Results/Orders Orders Procedure Category Date Status Time Terbinafine 1% Cream PHA 12/11/16 In Process (Lamisil At) 00:30 Cephalexin Capsule PHA 12/11/16 In Process (Keflex) 00:30 Medications Current ED Medications Terbinafine HCl (Lamisil At) 1 applic O ONCE TOP ; Start 12/11/16 at 00:30; Stop 12/11/16 at 00:31 Cephalexin HCl (Keflex) 500 mg O ONCE PO ; Start 12/11/16 at 00:30; Stop at 00:31 Progress Progress Patient started on Lamisil cream twice a day, Keflex 3 times a day, and patient is to follow-up tomorrow with his surgeon. FRANCISCA VERDUGO MD December 11, 2016 00:20
--- OUTSIDE RECORDS SUMMARY | 2016-12-11 00:23 | XMS REPORT | Continuity of Care Document ---
Author Author [facility] Organization [facility] Address Unknown Phone Unavailable Support Name Relationship Address Phone LETICIA SETHI Next Of Kin [address] [place] [address] Unavailable Insurance Providers Payer Name Policy Number Subscriber Name Relationship Rust [id number] Sheri Pierce 18 Self Workers Compensation [id number] Sheri Pierce 18 Self Problems No Known Problems or Medical conditions. Family History History Response Recorded Date/Time HX Cerebrovascular Accident N 01/27/13 7:01am Hx Seizures N 01/27/13 7:01am Hx [place]ina Y 2012[place] [facility] [place] OCC 01/27/13 7:01am Hx Congestive [...] DAILY Olanzapine (Zyprexa) 2.5 Mg PO BID [place]-3 Acid Ethyl Esters (Lovaza) 1 G PO [...] 27, 2013 7:35am 0.6 % H 0.0-0.5 NS-Blf-F-Type Natriuretic Peptide March 17, 2012 10:45am 14 PG/ML N 0-175 Procedures Procedure Code Date ARTHROSCOP ROTATOR CUFF REPR [id number] 01/27/13 SHOULDER ARTHROSCOPY/SURGERY 97453 01/27/13 SHOULDER ARTHROSCOPY/SURGERY 83563 01/27/13 Encounters Encounter Location Date/Time Departed Emergency Room [facility] 03/17/12 10:58am
--- OUTSIDE RECORDS SUMMARY | 2016-12-11 00:23 | XMS REPORT | Continuity of Care Document ---
Author Author [facility] Address Unknown Phone Unavailable Allergies Medications [...] Procedures Code Description [place] [address] OFFICE/OUTPATIENT VISIT, Chidi Candelariaia Ana 09/01/2015 [id number] OFFICE/OUTPATIENT VISIT, MAN Estrada Susana Ana 09/01/2015 [id number] OFFICE/OUTPATIENT VISIT, Wendy Candelariaricia Ana 05/29/2016 [id number] OFFICE/OUTPATIENT VISIT, MAN Estrada Susana Ana 05/29/2016 13529 OFFICE/OUTPATIENT VISIT, MAN Estrada Susana Ana 11/22/2016 [id number] OFFICE/OUTPATIENT VISIT, Wendy Candelariaricia Aan 11/22/2016 Results Encounters ACCT No. Visit Date/Time Discharge Status Pt. Type Provider Facility Loc./Unit Complaint [id number] 11/22/2016 15:43:00 11/22/2016 16:13:00 DIS Outpatient
[2016-12-11] MEDS ORDERED: CEPH-583 PO (00:26)
[2016-12-11] MEDS ORDERED: TERBINAFINE 1% CREAM 15gm TUBE TOP ONE (00:30)
[2016-12-11] MEDS ORDERED: CEPHALEXIN 500 MG CAPSULE PO ONE (00:30)
[2016-12-11 00:46] VITALS: BP 151/94; PULSE 114; RESP 20; TEMP 98.1; O2SAT 92
--- NOTE | 2016-12-11 01:00 | NUR ---
DEPART PT IS GIVEN DISMISSAL INSTRUCTIONS WITH VERBAL UNDERSTANDING. PT IS GIVEN SCRIPT X1, CREAM X1. PT LEAVES AMBULATORY TO ED REGISTRATION DESK
== END 2016-12-11 01:00 | disposition home or self-care (01) ==
LOC: ED 23:57
DX: L03.111 Cellulitis of right axilla (principal); B35.8 Other dermatophytoses